=== PATIENT | male | born 1955 | race Caucasian/White ===

== ENCOUNTER 2018-01-05 09:51 | Day surgery (SDC) | payer BC, OTHER ==
[~2018-01-05] VITALS: Ht 175.3 cm; Wt 92.4 kg
[~2018-01-05 09:51] MED LIST: ASPI81CH PO; ATORVASTATIN CA80 MG PO; HYDR1TAB94 PO; Mobic15 MG PO; Multiple Vitam1 EAC1 PO; SERT100 PO
== END 2018-01-05 13:44 | disposition home or self-care (01) ==
LOC: ORSCSDS 09:51
PROVIDERS: Orthopaedic Surgery
PROC: 0JBR0ZX Excision of Left Foot Subcutaneous Tissue and Fascia, Open Approach, Diagnostic (ICD-10-PCS; principal; 2018-01-05 11:30)
DX: M67.442 Ganglion, left hand (principal); I10 Essential (primary) hypertension; I25.10 Atherosclerotic heart disease of native coronary artery without angina pectoris; E78.5 Hyperlipidemia, unspecified; Z87.891 Personal history of nicotine dependence; Z79.899 Other long term (current) drug therapy; Z79.82 Long term (current) use of aspirin
CPT/HCPCS: J0690; J1100; J1885; J2250; J2405; J3010; J7120

== ENCOUNTER 2019-03-18 07:40 | Observation (INO) | payer MEDICARE, BC ==
[~2019-03-18] VITALS: Ht 175.3 cm; Wt 89.9 kg
[~2019-03-18 07:40] MED LIST changes: +Adult Low Dose81 MG PO; +EZET10 PO
--- NOTE | 2019-03-18 08:37 | NUR ---
03/18/19 0837 Sarai Tolbert RN ATTEMPTED IV TWICE UNSUCCESSFULLY. RN ([facility]) WAS ABLE TO START THE IV SUCCESSFULLY IN THE RIGHT HAND ON THE THIRD ATTEMPT. PT TOLERATED ALL ATTEMPS WELL. PT HAS AND SERVICE DOG AT BEDSIDE. CALL LIGHT IN REACH.
--- NOTE | 2019-03-18 09:56 | NUR ---
03/18/19 0956 Marilyn Mejias PT NOTED TO BE IN VENTRICULAR TACHYCARDIA AT 0938, ASKED FOR THE CODE CART TO COME IN AND HELP AVAILABLE. DEFIB PADS PLACED AT 0943 PT CONTINUED TO HAVE A PULSE THE ENTIRE TIME. PT RESTORED TO NSR WITH TIME.
--- NOTE | 2019-03-18 11:22 | NUR ---
03/18/19 Maria Victoria1 Dayan Richards patient remains hypotensive bp 84/54, awake alert resp unlabored, denies sob chest pain or any pain, EKG done per anesthesia order.
--- NOTE | 2019-03-18 11:46 | NUR ---
03/18/19 Dayan Beltrán AWAKE ALERT RESP UNLABORED, DENIES PAIN, REMAINS HYPOTENSIVE 84/51. IN SR NO ECTOPY, IN ROOM DISCUSSING ADMISSION TO HOSPITAL
--- NOTE | 2019-03-18 12:30 | NUR ---
RECEIVED PHONE REPORT FROM SUR[facility]ERY C[facility]. PT TO ARRIVE TO UNIT WITH MUSTACHE DRESSING TO NOSE AND DIRECTIONS TO GIVE SINUS RINSE LATER THIS AFTERNOON/EARLY EVENING. PT HAS BEEN EXPERIENCING HYPOTENSION, WILL CONTINUE CLOSE MONITORING WHEN PATIENT ARRIVES TO UNIT.
[2019-03-18 12:36] LABS: Hematocrit 41.9 % (37.0-53.0); Hemoglobin 13.9 g/dL (13.5-17.5); Mean Corpuscular HGB Conc 33.2 g/dL (31.5-36.5); Mean Corpuscular Volume 97 fL (80-100); Mean Platelet Volume 11.6 fL (9.1-12.4); Platelet Count 144 K/mm3 (150-400); RDW Coefficient Variation 13.9 % (11.7-14.2); RDW Standard Deviation 49.9 fL (35.1-46.3); Red Blood Cell Count 4.34 M/mm3 (4.30-5.90)
[2019-03-18 13:06] LABS: Anion Gap 8 mmol/L (6-16); Blood Urea Nitrogen 16 mg/dL (8-24); Bun/Creatinine Ratio 21.8 (12.0-20.0); CO2, Blood 25 mmol/L (21-32); Calcium, Blood 8.3 mg/dL (8.5-10.1); Chloride, Blood 105 mmol/L (98-108); Creatinine, Blood 0.74 mg/dL (0.60-1.20); Glomerular Filtration Rate >60 (60-); Glucose, Blood 142 mg/dL (70-99); Magnesium, Blood 2.1 mg/dL (1.6-2.4); Potassium, Blood 3.7 mmol/L (3.5-5.5); Sodium, Blood 138 mmol/L (136-145)
--- NOTE | 2019-03-18 15:29 | NUR ---
ECHOCARDIOGRAM COMPLETE
--- NOTE | 2019-03-18 21:00 | NUR ---
PCU NIGHTSHIFT ASSUMED CARE OF PT APPROX 1900. PT A&OX4. ASSESSMENT COMPLETED. VITAL SIGNS STABLE. PT HAS GAUZE IN PLACE TO CATCH DRAINAGE FROM NOSE. PT REPORT PAIN IS GONE AND HE IS COMFORTABLE AT THIS TIME. IS AT BEDSIDE, ALONG WITH SERVICE DOG. Bobbi VICENTEMayank RUNNING. BED IN LOW POSITION, CALL LIGHT IN REACH AND PT DENIES ANY NEEDS AT THIS TIME.
--- NOTE | 2019-03-19 05:20 | NUR ---
SHIFT SUMMARY PT PLEASANT, COOPERATIVE AND USES CALL LIGHT APPROPRAITELY. PT REMAINS A&OX4. ASSESSMENT FINDINGS REMAIN UNCHANGED. VITAL SIGNS STABLE, ALTHOUGH BLOOD PRESSURE SLIGHTLY LOW BUT PT WAS RESTING CALMING AND REMAINS HIGHER THAN BLOOD PRESSURES TAKEN AROUND ARRIVAL TO UNIT. PT DENIES ANY SYMPTOMS WITH THIS. PT ABLE TO AMBULATE TO BATHROOM NEEDED. PT CORNELIUS IRRIGATE ORDERED PER EMAR. GAUZE CHANGED. REMAINS BEDSIDE T/O SHIFT. QUESTIONS AND CONCERNS ANSWERED THEY CAME UP. BED IN LOW POSITION, CALL LIGHT IN REACH AND PT DENIES ANY NEEDS AT THIS TIME. WILL CONTINUE TO MONITOR UNTIL HANDOFF TO DAYSHIFT RN.
--- NOTE | 2019-03-19 09:50 | NUR ---
DOCTOR UPDATES: CALLED CARDIOLOGY FOR CONSULT, DR ROGERS STATED HE WILL COME SEE THE PATIENT. DR. SERVIN IN TO FOLLOW UP WITH PATIENT, STATED EVERYTHING LOOKS GOOD FOR ENT FOR D/C PENDING CARDIOLOGY CONSULT. DR. BARRETT IN TO SEE PATIENT, INDICATED THAT HE IS READY TO DISCHARGE SOON CARDIOLOGY CONSULTS.
[2019-03-19] MEDS ORDERED: Lisinopril2.5 MG PO (16:10)
[2019-03-19] MEDS ORDERED: [UNRECOGNIZED DRUG - REMARK] (16:12)
== END 2019-03-19 16:48 | disposition home or self-care (01) ==
LOC: ORSCSDS 07:40 → SURS 11:38 → PCU 13:53
PROVIDERS: Otolaryngology; ADMIT Internal Medicine
PROC: 09BM0ZZ Excision of Nasal Septum, Open Approach (ICD-10-PCS; principal; 2019-03-18 09:00)
DX: J34.2 Deviated nasal septum (principal); J34.3 Hypertrophy of nasal turbinates; I95.9 Hypotension, unspecified; I49.9 Cardiac arrhythmia, unspecified; R77.8 Other specified abnormalities of plasma proteins; E87.6 Hypokalemia; I10 Essential (primary) hypertension; I25.10 Atherosclerotic heart disease of native coronary artery without angina pectoris; I21.4 Non-ST elevation (NSTEMI) myocardial infarction; Z88.0 Allergy status to penicillin; Z79.899 Other long term (current) drug therapy; Z79.82 Long term (current) use of aspirin; Z87.891 Personal history of nicotine dependence
CPT/HCPCS: 36415; 80048; 83735; 84484; 85027; 93005; 93010; A9270-GY; C8923; J1100; J2250; J2370; J2405; J2704; J2710; J3010; J7120; Q9957

== ENCOUNTER 2019-07-01 07:29 | Day surgery (SDC) | payer MEDICARE, BC ==
[~2019-07-01] VITALS: Ht 175.3 cm; Wt 81.2 kg
[~2019-07-01 07:29] MED LIST changes: +Lisinopril2.5 MG PO; +[UNRECOGNIZED DRUG - REMARK]
--- NOTE | 2019-07-01 08:12 | NUR ---
07/01/19 0812 SHAZIA RAMÍREZ ONE BAD IV DUE TO GHADA BENTON, ONE GOO DIV IN AC BY NERI
== END 2019-07-01 09:30 | disposition home or self-care (01) ==
LOC: ORSCSDS 07:29
PROVIDERS: Surgery
PROC: 0DJD8ZZ Inspection of Lower Intestinal Tract, Via Natural or Artificial Opening Endoscopic (ICD-10-PCS; principal; 2019-07-01 08:30)
DX: Z12.11 Encounter for screening for malignant neoplasm of colon (principal); Z86.010 Personal history of colon polyps; F32.9 Major depressive disorder, single episode, unspecified; I10 Essential (primary) hypertension; E78.5 Hyperlipidemia, unspecified; E78.00 Pure hypercholesterolemia, unspecified; Z79.82 Long term (current) use of aspirin; Z79.899 Other long term (current) drug therapy
CPT/HCPCS: J2704; J7120

== ENCOUNTER 2025-01-06 07:49 | Day surgery (SDC) | payer MEDICARE, OTHER ==
[~2025-01-06] VITALS: Ht 175.3 cm; Wt 69.2 kg
[~2025-01-06 07:49] MED LIST changes: +Lactated Ringer's 1,000 ML IV ONE; +propofoL 50 ML IV ONE
[2025-01-06] MEDS ORDERED: Lactated Ringer's 1,000 ML IV ONE (09:09)
[2025-01-06 10:19] VITALS: BP 113/70
== END 2025-01-06 10:23 | disposition home or self-care (01) ==
LOC: ORSCSDS 07:49
PROVIDERS: Surgery
PROC: 0DJD8ZZ Inspection of Lower Intestinal Tract, Via Natural or Artificial Opening Endoscopic (ICD-10-PCS; principal; 2025-01-06 09:15)
DX: Z12.11 Encounter for screening for malignant neoplasm of colon (principal); Z86.0100 Personal history of colon polyps, unspecified; K57.30 Diverticulosis of large intestine without perforation or abscess without bleeding; I25.10 Atherosclerotic heart disease of native coronary artery without angina pectoris; I10 Essential (primary) hypertension; F32.A Depression, unspecified; Z79.82 Long term (current) use of aspirin; Z79.899 Other long term (current) drug therapy; Z87.891 Personal history of nicotine dependence
CPT/HCPCS: J2704; J7120

== ENCOUNTER 2025-03-13 10:50 | Emergency (ER) | payer MEDICARE, OTHER ==
[~2025-03-13] VITALS: Ht 175.3 cm; Wt 68.0 kg
[~2025-03-13 10:50] MED LIST changes: -Lactated Ringer's 1,000 ML IV ONE; -propofoL 50 ML IV ONE
[2025-03-13] MEDS ORDERED: Morphine Sulfate 4 MG/1 ML Injection IM ONE (12:40)
[2025-03-13 14:51] VITALS: BP 101/63
== END 2025-03-13 14:56 | disposition home or self-care (01) ==
LOC: ER 10:50
DX: K40.90 Unilateral inguinal hernia, without obstruction or gangrene, not specified as recurrent (principal); Z87.891 Personal history of nicotine dependence; Z79.82 Long term (current) use of aspirin; Z79.899 Other long term (current) drug therapy; Z88.0 Allergy status to penicillin; Z88.8 Allergy status to other drugs, medicaments and biological substances
CPT/HCPCS: 76857; 96372; 99283-25; J2270

== ENCOUNTER 2025-03-17 11:49 | Observation (INO) | payer MEDICARE, OTHER ==
[~2025-03-17] VITALS: Ht 175.3 cm; Wt 68.8 kg
[2025-03-17 12:36] LABS: BASOPHILS ABSOLUTE AUTO 0.07 K/mm3 (0.00-0.23); BASOPHILS PERCENT AUTO 1 % (0-2); EOSINOPHILS ABSOLUTE AUTO 0.04 K/mm3 (0.00-0.68); EOSINOPHILS PERCENT AUTO 0 % (0-6); Hematocrit 46.8 % (37.0-53.0); Hemoglobin 15.5 g/dL (13.5-17.5); IMMATURE GRAN ABSOLUTE AUTO 0.04 K/mm3 (0.00-0.10); IMMATURE GRAN PERCENT AUTO 0 % (0-1); LYMPHOCYTES ABSOLUTE AUTO 2.47 K/mm3 (0.84-5.20); LYMPHOCYTES PERCENT AUTO 27 % (21-46); MONOCYTES ABSOLUTE AUTO 0.98 K/mm3 (0.16-1.47); MONOCYTES PERCENT AUTO 11 % (4-13); Mean Corpuscular HGB 30.9 pg (26.0-34.0); Mean Corpuscular HGB Conc 33.1 g/dL (31.5-36.5); Mean Corpuscular Volume 93 fL (80-100); Mean Platelet Volume 10.3 fL (9.1-12.4); NEUTROPHILS ABSOLUTE AUTO 5.62 K/mm3 (1.96-9.15); NEUTROPHILS PERCENT AUTO 61 % (41-73); Platelet Count 196 K/mm3 (150-400); RDW Coefficient Variation 15.6 % (11.7-14.2); RDW Standard Deviation 53.5 fL (35.1-46.3); Red Blood Cell Count 5.01 M/mm3 (4.30-5.90); White Blood Cell Count 9.22 K/mm3 (4.00-11.30)
[2025-03-17 12:45] LABS: Albumin, Blood 3.5 g/dL (3.4-5.0); Albumin/Globulin Ratio 1.1 (0.8-1.8); Bilirubin, Total 0.7 mg/dL (0.1-1.0); Bun/Creatinine Ratio 15.1 (12.0-20.0); Calcium, Blood 9.1 mg/dL (8.5-10.1); Creatinine, Blood 0.73 mg/dL (0.60-1.20); Globulin, Blood 3.2 g/dL (2.2-4.0); Potassium, Blood 4.4 mmol/L (3.5-5.5); Total Protein, Blood 6.7 g/dL (6.4-8.2)
[2025-03-17] MEDS ORDERED: ELIQUIS5 M3 PO (14:00)
[2025-03-17] MEDS ORDERED: LISI5 PO (14:00)
[2025-03-17 14:12] LABS: Source, Urine Clean Catch
[2025-03-17 14:20] LABS: Appearance, Urine Clear (Clear); Bilirubin, Urine Neg (Neg); Blood, Urine 1+ (Neg); Color, Urine Yellow (P-Yellow); Glucose Qualitative, Urine Neg (Neg); Ketones, Urine Neg (Neg); Leukocyte Esterase, Urine Neg (Neg); Nitrite, Urine Neg (Neg); Protein, Urine 1+ (Neg); Specific Gravity, Urine 1.025 (1.003-1.022); Urobilinogen, Urine NORM (Normal)
[2025-03-17 14:41] LABS: Bacteria Not Seen /hpf; Hyaline Casts 0-2 /lpf (0-2); Red Blood Cells, Urine 0-2 /hpf (0-2); Squamous Epithelial Cells Not Seen /hpf (Few); White Blood Cells, Urine 0-2 /hpf (0-5)
[2025-03-17] MEDS ORDERED: Ondansetron HCl 2 MG / ML 2ML Vial IV ONE (15:10)
[2025-03-17] MEDS ORDERED: HYDROmorphone HCl/Pf 1MG SYR IV ONE (15:10)
[2025-03-17] MEDS ORDERED: Ondansetron HCl 2 MG / ML 2ML Vial IV PRN (17:25)
[2025-03-17] MEDS ORDERED: NS 1,000 ML IV SCH (17:25)
[2025-03-17] MEDS ORDERED: FentaNYL Citrate 50 MCG/ML 2 ML Injection IV PRN (17:30)
[2025-03-17] MEDS ORDERED: OxyCODONE 5 mg/Acetamin 325 mg TABLET PO PRN (17:30)
[2025-03-17 20:04] VITALS: BP 112/81
[2025-03-17] MEDS ORDERED: Lisinopril 5 MG Tab PO SCH (21:00)
[2025-03-17] MEDS ORDERED: Docusate Sodium/Senna 1 Tab PO SCH (21:00)
[2025-03-18] VITALS (16 sets, daily range): BP systolic 93–153; BP diastolic 53–84
--- NOTE | 2025-03-18 06:16 | NUR ---
PT ADMITTED LAST EVENING AT 1999. PT NPO AFTER MIDNIGHT FOR SURGICAL CONSULT AND PROBABLE SURGERY TODAY. MEDICATED FOR PAIN X1 PER EMAR. PT INDEPENDENT IN ROOM. PT SLEPT INTERMITTENTLY DURING THE NIGHT. BED IN LOWEST POSITION, CALL LIGHT WITHIN REACH, SIDERAILS UP X2.
[2025-03-18] MEDS ORDERED: Aspirin 81 MG Chew PO SCH (09:00)
[2025-03-18] MEDS ORDERED: Lisinopril 5 MG Tab PO SCH (09:00)
[2025-03-18] MEDS ORDERED: Atorvastatin 40 MG Tab PO SCH (09:00)
[2025-03-18] MEDS ORDERED: ATOR80 PO (09:42)
[2025-03-18] MEDS ORDERED: Bupivacaine 0.5% HCl 5 MG/ML 30MLVIAL ONE (16:50)
--- NOTE | 2025-03-18 17:10 | NUR ---
TRANSFER NOTE- PT WAS TAKEN TO DAY SURGERY- CALLED TELE TO NOTIFY THEM THE PT WAS BEING TAKEN TO DAY SURGERY THEN POST OP THE PT WILL GO TO RM 209. CALLED TELEPHONE REPORT TO CLAY GALVAN. PT BELONGINGS WERE TAKEN DOWN TO ROOM 209 BY THE AIR BAG CURER. NO S&S OF DISTRESS NOTED AT THE TIME PT WAS TAKEN TO DAY SURGERY.
[2025-03-18] MEDS ORDERED: Lactated Ringer's 1,000 ML IV SCH (17:30)
[2025-03-18] MEDS ORDERED: propofoL 20 ML IV ONE (18:37)
[2025-03-18] MEDS ORDERED: FentaNYL Citrate 50 MCG/ML 2 ML Injection ONE ×2 (18:37→19:12)
[2025-03-18] MEDS ORDERED: Dexamethasone Sod Phos 10 MG/ML 1ML VIAL ONE (18:53)
[2025-03-18] MEDS ORDERED: Albuterol 2.5 MG/3 ML VIAL INH PRN (19:05)
[2025-03-18] MEDS ORDERED: FentaNYL Citrate 50 MCG/ML 2 ML Injection IV PRN (19:05)
[2025-03-18] MEDS ORDERED: HYDROmorphone HCl/Pf 1MG SYR IV PRN (19:05)
[2025-03-18] MEDS ORDERED: Morphine Sulfate 4 MG/1 ML Injection IV PRN (19:10)
[2025-03-18] MEDS ORDERED: Ondansetron HCl 2 MG / ML 2ML Vial IV PRN (19:10)
[2025-03-18] MEDS ORDERED: Metoclopramide HCl 5MG / ML 2ML Vial IV PRN (19:10)
[2025-03-18] MEDS ORDERED: FentaNYL Citrate 50 MCG/ML 5 ML Injection ONE (19:11)
[2025-03-18] MEDS ORDERED: Rocuronium Bromide 10 MG/ML 5ML Injection IV ONE (19:16)
[2025-03-18] MEDS ORDERED: Ketorolac Tromethamine 30mg Vial IV PRN (19:20)
[2025-03-18] MEDS ORDERED: Ondansetron HCl 2 MG / ML 2ML Vial ONE (19:31)
[2025-03-18] MEDS ORDERED: Sugammadex Sodium 200 MG/2ML SDV (100 MG/ML) ONE (19:32)
[2025-03-18] MEDS ORDERED: Naloxone HCl 0.4MG / ML 1ML Vial ONE (20:01)
--- NOTE | 2025-03-18 22:13 | NUR ---
PT ARRIVED FROM PACU @ 2052 POST OP ROBOTIC LAP INGUINAL HERNIA REPAIR. REGISTERED RESPIRATORY THERAPIST REZA GAVE BEDSIDE REPORT. PT HAS 4 LOWER ABD LAP SITES WITH TISSUE ADHESIVE COVERING THEM. POST OP VSS.
[2025-03-19] MEDS ORDERED: DEXTROMETHORPHAN/BENZOCAINE 1 EACH LOZENGE MT PRN (00:55)
[2025-03-19 00:56] VITALS: BP 92/61
[2025-03-19 04:42] VITALS: BP 94/55
--- NOTE | 2025-03-19 05:09 | NUR ---
SHIFT SUMMARY NOC PT A/O X 4. PLEASANT AND COOPERATIVE WITH CARE. POST OP VSS. PT HAD ROBTOIC LAP INGUINAL PROCEDURE YESTERDAY AND HAS 4 LAP SITES WITH TISSUE ADHESIVE OPEN TO AIR IN PLACE C/D/I. PT WAS ABLE TO AMBULATE WITH SBA/FWW IN HALLWAY W/O ISSUE. ABD PAIN BEING MANAGED PER EMAR. PT PO INTAKE EXCELLENT POST OP. IVF INFUSING. PT ON TELE SINUS IN 60'S. PT CURRENTLY RESTING WITH BED IN LOWEST POSITION, AND CALL LIGHT WITHIN REACH.
[2025-03-19 07:14] VITALS: BP 113/60
[2025-03-19] MEDS ORDERED: Percocet 5-3251 EACH PO (09:42)
[2025-03-19] MEDS ORDERED: FT SENNA-S 8.61 EACH PO (09:44)
--- NOTE | 2025-03-19 10:15 | NUR ---
PATIENT DC'D TO HOME WITH . DC INSTRUCTIONS AND EDUCATION DISCUSSED WITH PATIENT AND COPY PROVIDED. PATIENT DENIES ANY FURTHER QUESTIONS OR CONCERNS.
== END 2025-03-19 11:19 | disposition home or self-care (01) ==
LOC: ER 11:49 → MEDS 11:50 → SURS 11:50 → MEDS 20:00 → SURS 03-18 17:45
PROVIDERS: Physician Assistant; ADMIT Internal Medicine
DX: K40.30 Unilateral inguinal hernia, with obstruction, without gangrene, not specified as recurrent (principal); I10 Essential (primary) hypertension; I25.10 Atherosclerotic heart disease of native coronary artery without angina pectoris; I48.92 Unspecified atrial flutter; E78.5 Hyperlipidemia, unspecified; I71.21 Aneurysm of the ascending aorta, without rupture; Z88.0 Allergy status to penicillin; Z88.8 Allergy status to other drugs, medicaments and biological substances; Z79.01 Long term (current) use of anticoagulants; Z79.82 Long term (current) use of aspirin; Z79.899 Other long term (current) drug therapy
CPT/HCPCS: 74177; 80053; 81001; 85025; 93005; 93010; 96374-59; 96375; 96376; 99284-25; A9270; C1781; G0378; J1100; J1171; J1885; J2310; J2405; J2704; J3010; J7030; J7120; Q9967